=== PATIENT | female | born 1955 | race Caucasian/White ===

== ENCOUNTER 2018-09-21 10:10 | Emergency (ER) | payer SELFPAY ==
[~2018-09-21] VITALS: Ht 167.6 cm; Wt 61.2 kg
[2018-09-21 11:30] VITALS: BP 146/76
[2018-09-21] MEDS ORDERED: HYDROcodone-ACET 5/325MG TAB PO ONE (13:00)
== END 2018-09-21 14:21 | disposition home or self-care (01) ==
LOC: ER 10:10
DX: S52.92XA Unspecified fracture of left forearm, initial encounter for closed fracture (principal); S52.202A Unspecified fracture of shaft of left ulna, initial encounter for closed fracture; I10 Essential (primary) hypertension; W19.XXXA Unspecified fall, initial encounter; Y93.89 Activity, other specified; Y99.8 Other external cause status; Y92.89 Other specified places as the place of occurrence of the external cause

== ENCOUNTER 2019-05-19 23:31 | Inpatient (IN) | payer MEDICAID, OTHER ==
[~2019-05-19] VITALS: Ht 167.6 cm; Wt 75.7 kg
[2019-05-20 00:14] LABS: Basophils # (auto) 0.1 uL; Eosinophils # (auto) 0.4 uL; Eosinophils % (auto) 4.6 % (0.0-7.0); Hematocrit 39.6 % (36.0-46.0); Hemoglobin 12.9 g/dL (12.2-16.2); Lymphocytes # (auto) 1.4 uL; Lymphocytes % (auto) 14.7 % (10.0-50.0); Mean Corpuscular Hemoglobin 29.5 pg (28.0-32.0); Mean Corpuscular Hgb Conc. 32.7 g/dL (32.0-36.0); Mean Corpuscular Volume 90.2 fL (80.0-100.0); Monocytes # (auto) 0.5 uL; Monocytes % (auto) 5.6 % (0.0-12.0); Neutrophils # (auto) 7.2 uL; Neutrophils % (auto) 74.1 % (37.0-80.0); Nucleated Red Blood Cells % 0.1 %; Platelet Count (auto) 371 10^3/uL (140-450); Red Blood Cells 4.39 10^6/uL (4.0-5.20); Red Cell Distribution Width 15.8 % (11.8-14.3); White Blood Cell 9.7 10^3/uL (4.4-10.8)
[2019-05-20] MEDS ORDERED: FUROSEMIDE 40 MG/4 ML VIAL IV ONE ×2 (00:30→01:30)
[2019-05-20 00:31] LABS: Albumin 3.1 g/dL (3.4-5.0); Anion Gap 9 (5-15); Blood Urea Nitrogen 15 mg/dL (7-18); Calcium 8.4 mg/dL (8.5-10.1); Carbon Dioxide 21 mmol/L (21-32); Chloride 102 mmol/L (98-107); Glucose 106 mg/dL (74-106); Magnesium 1.9 mg/dL (1.6-2.6); Potassium 3.9 mmol/L (3.5-5.1); Sodium 132 mmol/L (136-145)
[2019-05-20 00:33] LABS: BUN/Creatinine Ratio 20.8; GFR African American 105 mL/min; GFR Non-African American 87 mL/min
[2019-05-20 00:41] LABS: Alanine Aminotransferase 46 U/L (13-56); Alkaline Phosphatase 140 U/L (45-117); Aspartate Aminotransferase 34 U/L (15-37); Bilirubin, Total 0.3 mg/dL (0.2-1.0); Total Protein 7.1 g/dL (6.4-8.2)
[2019-05-20 00:44] LABS: INR 1.01 (0.9-1.15); Partial Thromboplastin Time 31.4 sec (23.64-32.05)
[2019-05-20] MEDS ORDERED: FUROSEMIDE 20 MG/2 ML VIAL IV ONE (00:45)
[2019-05-20] MEDS ORDERED: LEVOFLOXACIN 750MG 150 ML IV ONE (01:15)
[2019-05-20 01:22] LABS: Urine WBC None Seen /hpf (0 - 5)
[2019-05-20 01:45] LABS: Urine Bacteria NONE SEEN /hpf (None Seen); Urine Blood Negative /uL (Negative); Urine Specific Gravity 1.003 (1.001-1.035)
[2019-05-20] MEDS ORDERED: ONDANSETRON HCL 4 MG/2 ML VIAL IV ONE ×2 (02:30→04:00)
[2019-05-20] MEDS ORDERED: LABETALOL HCL 5 MG/ML 4ML SYRINGE IV ONE ×2 (02:30→04:00)
[2019-05-20] MEDS ORDERED: MORPHINE SULFATE 4 MG/ML SYR/VIAL IV ONE (02:30)
[2019-05-20] MEDS ORDERED: LEVOFLOXACIN 500MG 100 ML IV ONE (03:00)
[2019-05-20] MEDS ORDERED: MORPHINE SULF INJ 2 MG/ML SYRINGE 1ML IV ONE (04:00)
[2019-05-20] MEDS ORDERED: SODIUM CHLORIDE 0.9% 250 ML IV ONE (04:00)
[2019-05-20] MEDS ORDERED: IOHEXOL 350 MG/ML 100ML IJ ONE (05:52)
[2019-05-20] MEDS ORDERED: ONDANSETRON HCL 4 MG/2 ML VIAL IV PRN (06:15)
[2019-05-20] MEDS ORDERED: cloNIDine HCL 0.1 MG TAB PO PRN (06:15)
[2019-05-20] MEDS ORDERED: TEMAZEPAM 15 MG CAP PO PRN (06:15)
[2019-05-20] MEDS ORDERED: MORPHINE SULF INJ 2 MG/ML SYRINGE 1ML IV PRN (07:15)
[2019-05-20] MEDS ORDERED: NITROGLYCERIN 0.4 MG SL TAB SL PRN (07:15)
[2019-05-20 07:37] VITALS: BP 129/72
[2019-05-20 07:39] LABS: Cholesterol 167 mg/dL (< 200); HDL Cholesterol 82 mg/dL (40-59); LDL Cholesterol 72 mg/dL (< 100); Triglycerides 67 mg/dL (< 150)
[2019-05-20] MEDS: ASPirin 81 mg TAB PO SCH (09:22)
[2019-05-20] MEDS: LEVOFLOXACIN 500MG 100 ML IV SCH (09:22)
[2019-05-20] MEDS: FAMOTIDINE 20 MG TAB PO SCH ×2 (09:23→22:11)
[2019-05-20] MEDS ORDERED: amLODIPine BESYLATE 5 MG TAB PO SCH (10:00)
[2019-05-20] MEDS ORDERED: LEVOTHYROXINE SODIUM 100 MCG/5 ML INJ IV ONE (13:30)
--- NOTE | 2019-05-20 14:01 | NUR ---
Respiratory note: PRN MED NEB TX ASSESSMENT. PT AWAKE ALERT AND RESPONSIVE. PT FOUND ON 4 LPM NC. SP02 96%. BREATH SOUNDS ARE DIMINISHED, WHEEZE AND RALES. PT IS IN NO DISTRESS AT THIS TIME. NO TX INDICATED. INFORMED PT IF BECOMES SOB TO HAVE RT PAGED.
--- NOTE | 2019-05-20 14:30 | NUR ---
CAME FROM ER ON [facility], RECEIVED PATIENT ALERT AND ORIENTED X4, NOT IN DISTRESS, DIMINISHED SOUNDS IN BILATERAL LUNG LOBES, RR=20 SAT 93% WITH 3 L NC, DEEP BREATHING AND COUGHING ENCOURAGED, SR R=74 ON TELE MONITOR, DENIED CHEST PAIN AND SOB, ABDOMEN SOFT AND ROUND WITH ACTIVE BS, LAST BM=05/19/19, BARON CATH IN PLACE AND PATENT, DRAINING CLEAR YELLOW URINE, BRUISES ON BILATERAL HANDS NOTED, EDEMA AND SKIN DRYNESS OF BILATERAL LOWER EXTREMITIES NOTED, GENERAL SKIN INTACT WARM TO TOUCH, RADIAL AND PEDAL PULSES PALPABLE, CAP REFILL<3 SECONDS, RESTING ON BED, VS T=97.6 RR=20 SAT=94% P=79 SX=496/82, HEAD OF BED ELEVATED, RAILS UP X2, CALL LIGHT ON REACH, WILL CONTINUE MONITORING.
--- NOTE | 2019-05-20 14:30 | NUR ---
PATIENT UNABLE TO PROVIDE HOME MEDICATION LIST OR REMEMBER THE MEDICATION SHE TAKE AT HOME, WILL BERING HOME MEDICATION LIST REPORTED.
[2019-05-20 14:41] LABS: Free T4 (Free Thyroxine) 0.81 ng/dL (0.89-1.76)
[2019-05-20 14:42] LABS: Free T3 1.83 pg/mL (2.3-4.2)
[2019-05-20 14:50] VITALS: BP 144/83
[2019-05-20] MEDS ORDERED: DIP25C PO (17:04)
[2019-05-20] MEDS ORDERED: LISI10TA6 PO (17:04)
[2019-05-20] MEDS ORDERED: FUROSEMIDE 20 MG/2 ML VIAL IV SCH (18:00)
[2019-05-20] MEDS: FUROSEMIDE 20 MG/2 ML VIAL IV SCH (18:08)
--- NOTE | 2019-05-20 19:50 | NUR ---
REPORT WAS GIVEN TO THE INFORMATION OFFICER RN.
--- NOTE | 2019-05-20 19:55 | NUR ---
Opening Shift Note Assumed care of patient, awake and alert. No S/S of distress/SOB or pain. Instructed on POC and to be NPO after MN. Instructed to call for assist PRN, patient verbalized understanding. Call light within reach, bed alarm on, will continue to monitor for changes Q1hr and PRN.
[2019-05-20 20:00] VITALS: BP 131/74
--- NOTE | 2019-05-20 21:21 | NUR ---
Respiratory note: ASSESSMENT FOR PRN MED NEB TX. PT PRESENTING NO RESPIRATORY DISTRESS AT THIS TIME. HR 80, SPO2 95% ON 6L NC, RR 20, BS DIMINISHED. PT REFUSED MED NEB TX, PT AWARE TO HAVE RT PAGE IF MED NEB TX IS NEEDED, WILL CONTINUE TO MONITOR.
[2019-05-20 22:00] VITALS: BP 131/74
[2019-05-20] MEDS: ATORVASTATIN 20 MG TAB PO SCH (22:11)
[2019-05-20] MEDS: ENALAPRIL MALEATE 2.5 MG TAB PO SCH (22:12)
[2019-05-20] MEDS: METOPROLOL TARTRATE 25 MG TAB PO SCH (22:13)
[2019-05-20] MEDS: ACETAMINOPHEN 325 MG TAB PO PRN (22:21)
[2019-05-20 23:18] LABS: Alcohol, Urine < 3.0 mg/dL (0-5); Amphetamine Screen, Urine NEGATIVE (NEGATIVE); Barbiturate Scree,Urine NEGATIVE (NEGATIVE); Benzodiazephine Screen, Urine NEGATIVE (NEGATIVE); Cannabinoid Screen, Urine NEGATIVE (NEGATIVE); Cocaine Screen, Urine NEGATIVE (NEGATIVE); Opiate Scree,Urine NEGATIVE (NEGATIVE); Phencyclidine Screen, Urine NEGATIVE (NEGATIVE)
[2019-05-21 05:00] VITALS: BP 99/61
[2019-05-21 05:39] LABS: Basophils # (auto) 0.1 uL; Basophils % (auto) 0.6 % (0.0-2.0); Eosinophils # (auto) 0.2 uL; Eosinophils % (auto) 2.8 % (0.0-7.0); Hematocrit 35.3 % (36.0-46.0); Hemoglobin 11.8 g/dL (12.2-16.2); Lymphocytes # (auto) 0.9 uL; Lymphocytes % (auto) 10.5 % (10.0-50.0); Mean Corpuscular Hemoglobin 30.3 pg (28.0-32.0); Mean Corpuscular Hgb Conc. 33.6 g/dL (32.0-36.0); Mean Corpuscular Volume 90.3 fL (80.0-100.0); Monocytes # (auto) 0.6 uL; Monocytes % (auto) 6.9 % (0.0-12.0); Neutrophils # (auto) 7.1 uL; Neutrophils % (auto) 79.2 % (37.0-80.0); Nucleated Red Blood Cells % 0.1 %; Platelet Count (auto) 303 10^3/uL (140-450); Red Blood Cells 3.91 10^6/uL (4.0-5.20); Red Cell Distribution Width 15.8 % (11.8-14.3); White Blood Cell 8.9 10^3/uL (4.4-10.8)
[2019-05-21 05:54] LABS: Albumin 2.5 g/dL (3.4-5.0); BUN/Creatinine Ratio 20.6; Calcium 8.1 mg/dL (8.5-10.1)
[2019-05-21] MEDS: FUROSEMIDE 20 MG/2 ML VIAL IV SCH ×2 (06:00→18:02)
[2019-05-21] MEDS: ALBUTEROL SULF 2.5 MG/0.5ML(0.5%) NEB SOLN NEB PRN ×2 (06:44→13:38)
--- NOTE | 2019-05-21 07:30 | NUR ---
Opening Shift Note Assumed care of patient, awake and alert. No S/S of distress/SOB or pain. Patient NPO for stress test and patient is aware. Instructed on POC and to call for assist PRN, will continue to monitor for changes Q1hr and PRN.
--- NOTE | 2019-05-21 08:35 | NUR ---
Patient to Nuclear med for cardiolite stress test per w/c in a stable condition.
[2019-05-21 09:00] VITALS: BP 132/73
[2019-05-21] MEDS ORDERED: ADENOSINE 66 MG in GIVE UN-DILUTED 0 ML IV ONE (09:00)
[2019-05-21] MEDS: LEVOTHYROXINE SODIUM 100 MCG/5 ML INJ IV SCH (11:06)
[2019-05-21] MEDS: METOPROLOL TARTRATE 25 MG TAB PO SCH ×2 (11:07→22:23)
[2019-05-21] MEDS: ENALAPRIL MALEATE 2.5 MG TAB PO SCH ×2 (11:07→22:22)
[2019-05-21] MEDS: FAMOTIDINE 20 MG TAB PO SCH ×2 (11:08→22:21)
[2019-05-21] MEDS: ASPirin 81 mg TAB PO SCH (11:08)
[2019-05-21] MEDS: LEVOFLOXACIN 500MG 100 ML IV SCH (11:19)
--- NOTE | 2019-05-21 11:30 | NUR ---
PATIENT NOTED TO BE BACK FROM STRESS TEST. PATIENT TOOK DIET AND FLUIDS WELL.
[2019-05-21 13:00] VITALS: BP 125/70
--- NOTE | 2019-05-21 14:42 | NUR ---
PT IN ULTRASOUND FOR A THORACENTESIS BY DR HUTCHINS. VS 100/[id number]%. finished at 1455. 1600 ml of pleural fluid removed and sent to lab. pt tolerated procedure well. post cxr done
--- NOTE | 2019-05-21 15:15 | NUR ---
PATIENT BACK TO HER ROOM PER BED S/P THORACENTESIS. NO BLEEDING OR DRAINAGE NOTED FROM RIGHT UPPER BACK DRESSINGS. WILL CONTINUE TO MONITOR PATIENT.
[2019-05-21 17:00] VITALS: BP 110/82
--- NOTE | 2019-05-21 19:49 | NUR ---
received report from day rn poc reviewed
[2019-05-21] MEDS: ATORVASTATIN 20 MG TAB PO SCH (22:21)
--- NOTE | 2019-05-21 22:46 | NUR ---
resting comfortable with hob up resp even and unlabored, non productive cough call light within reach, bed alarm intact
[2019-05-21 23:31] VITALS: BP 121/73
[2019-05-22] VITALS (7 sets, daily range): BP systolic 70–123; BP diastolic 58–65
--- NOTE | 2019-05-22 02:05 | NUR ---
awoke gave self bedbath, no c/o discomfort, call light within reach
[2019-05-22] MEDS: FUROSEMIDE 20 MG/2 ML VIAL IV SCH ×2 (05:49→17:48)
--- NOTE | 2019-05-22 05:58 | NUR ---
awoke am care given lasix given as ordered, no c/o discomfort
--- NOTE | 2019-05-22 07:02 | NUR ---
report given to am nurse poc reviewed
[2019-05-22 08:14] LABS: Potassium 3.6 mmol/L (3.5-5.1)
[2019-05-22 08:22] LABS: BUN/Creatinine Ratio 26.1; Calcium 8.3 mg/dL (8.5-10.1)
[2019-05-22] MEDS: LEVOFLOXACIN 500MG 100 ML IV SCH (11:27)
[2019-05-22] MEDS: ASPirin 81 mg TAB PO SCH (11:28)
[2019-05-22] MEDS: LEVOTHYROXINE SODIUM 100 MCG/5 ML INJ IV SCH (11:28)
[2019-05-22] MEDS: FAMOTIDINE 20 MG TAB PO SCH ×2 (11:29→21:38)
[2019-05-22] MEDS: METOPROLOL TARTRATE 25 MG TAB PO SCH ×2 (11:29→21:40)
[2019-05-22] MEDS: ENALAPRIL MALEATE 2.5 MG TAB PO SCH ×2 (11:29→21:39)
--- NOTE | 2019-05-22 19:10 | NUR ---
PT ASSESSED, PRN TX NOT INDICATED AT THIS TIME. SAT 93% ON 2L NC, NO SOB OR WHEEZING NOTED
[2019-05-22] MEDS: ATORVASTATIN 20 MG TAB PO SCH (21:41)
[2019-05-23 05:43] VITALS: BP 107/62
[2019-05-23] MEDS: FUROSEMIDE 20 MG/2 ML VIAL IV SCH ×2 (06:06→17:57)
[2019-05-23] MEDS: ACETAMINOPHEN 325 MG TAB PO PRN (07:49)
[2019-05-23 08:45] VITALS: BP 125/61
--- NOTE | 2019-05-23 09:27 | NUR ---
RT NOTE: WENT TO PTS ROOM TO ASSESS FOR PRN BREATHING TX, NO S/S OF SOB. HR 81 RR 16, SPO2 93% ON 2L NC. NO INDICATION FOR TREATMENT AT THIS TIME. WILL CONTINUE TO MONITOR PT.
[2019-05-23] MEDS: ASPirin 81 mg TAB PO SCH (10:45)
[2019-05-23] MEDS: LEVOTHYROXINE SODIUM 100 MCG/5 ML INJ IV SCH (10:45)
[2019-05-23] MEDS: FAMOTIDINE 20 MG TAB PO SCH ×2 (10:45→22:53)
[2019-05-23] MEDS: METOPROLOL TARTRATE 25 MG TAB PO SCH ×2 (10:51→22:00)
[2019-05-23] MEDS: LEVOFLOXACIN 500MG 100 ML IV SCH (10:52)
[2019-05-23] MEDS: ENALAPRIL MALEATE 2.5 MG TAB PO SCH ×2 (10:52→22:00)
[2019-05-23 13:00] VITALS: BP 115/71
[2019-05-23] MEDS ORDERED: cefTRIAXone 1GM/50ML D5W 50 ML IV ONE (13:15)
[2019-05-23] MEDS ORDERED: guaiFENesin-DM 100/10mg/5ml SYR PO ONE (13:15)
[2019-05-23] MEDS ORDERED: AZITHROMYCIN 500MG/ 250ML 250 ML IV ONE (14:15)
[2019-05-23 17:00] VITALS: BP 91/58
[2019-05-23 20:00] VITALS: BP 98/58
[2019-05-23] MEDS: guaiFENesin-DM 100/10mg/5ml SYR PO PRN (20:11)
[2019-05-23 22:00] VITALS: BP 98/51
[2019-05-23] MEDS: ATORVASTATIN 20 MG TAB PO SCH (22:53)
[2019-05-24 05:30] VITALS: BP 135/54
[2019-05-24] MEDS: guaiFENesin-DM 100/10mg/5ml SYR PO PRN ×4 (05:35→18:41)
[2019-05-24] MEDS: FUROSEMIDE 20 MG/2 ML VIAL IV SCH ×2 (05:36→18:41)
--- NOTE | 2019-05-24 06:51 | NUR ---
BP meds held at 2200 due to low BP 98/51 and 92/50. Asymptomatic. BP 135/54 this am. Up to bedside commode and seems to tolerate bedside commode. Cough syrup given X2 during noc with relief.
--- NOTE | 2019-05-24 08:00 | NUR ---
OPENING SHIFT NOTE: PATIENT AWAKE IN BED. A/OX4 RESPIRATIONS EVEN AND UNLABORED, SHALLOW, PATIENT REPORTS HAVING THE URGE TO COUGH. COMMODE AT BEDSIDE, BARON HUNG BELOW BLADDER FREE OF KINKS. CALL LIGHT AND ROOM PHONE PLACED WITHIN REACH. FALL PRECAUTIONS IN PLACE, WILL CONTINUE TO MONITOR.
--- NOTE | 2019-05-24 08:27 | NUR ---
Respiratory note: WENT TO PTS ROOM TO ASSESS FOR PRN BREATHING TX, NO S/S OF SOB. HR 66 RR 16, SPO2 97% ON 2L NC. NO INDICATION FOR TREATMENT AT THIS TIME. WILL CONTINUE TO MONITOR PT.
--- NOTE | 2019-05-24 08:33 | NUR ---
WOUND CARE CONSULT PLACED: PATIENT REPORTING "ITCHING EVERYWHERE FOR A WHILE NOW." THIS RN NOTED SCALY LESIONS TO UPPER ARMS AND BILATERAL LOWER LEGS.
[2019-05-24 08:49] LABS: BUN/Creatinine Ratio 27.2; Calcium 8.3 mg/dL (8.5-10.1); Magnesium 2.3 mg/dL (1.6-2.6); Potassium 4.4 mmol/L (3.5-5.1)
[2019-05-24 09:00] VITALS: BP 131/74
[2019-05-24] MEDS: cefTRIAXone 1GM/50ML D5W 50 ML IV SCH (09:32)
[2019-05-24] MEDS: ENALAPRIL MALEATE 2.5 MG TAB PO SCH ×2 (09:33→22:38)
[2019-05-24] MEDS: LEVOTHYROXINE SODIUM 100 MCG/5 ML INJ IV SCH (09:33)
[2019-05-24] MEDS: DOXYCYCLINE 100 MG TAB/CAP PO SCH ×2 (09:33→22:40)
[2019-05-24] MEDS: ASPirin 81 mg TAB PO SCH (09:33)
[2019-05-24] MEDS: FAMOTIDINE 20 MG TAB PO SCH ×2 (09:33→22:38)
[2019-05-24] MEDS: METOPROLOL TARTRATE 25 MG TAB PO SCH ×2 (09:34→22:39)
[2019-05-24] MEDS ORDERED: AZITHROMYCIN 500MG/ 250ML 250 ML IV SCH (10:00)
--- NOTE | 2019-05-24 11:00 | NUR ---
WOUND CARE NOTE: IN TO SEE PATIENT AT THIS TIME PER WOUND CARE CONSULT REQUEST. PATIENT NOTED TO HAVE RASH TO BLE, RIGHT UPPER SHOULDER, BACK. WOUND CONSULT ORDERED. PATIENT ADMITTED TO [facility] WITH DIAGNOSIS OF ACUTE ON CHRONIC DIASTOLIC HEART FAILURE. SHE HAS CURRENT ANALIA SCORE OF 18. PATIENT CAN SELF TURN/REPOSITION SELF. HOSPITALIST, DR. LERNER AT BEDSIDE. SHE IS ORDERING HYDROCORTISONE CREAM FOR PATIENT'S RASH TO RIGHT SHOULDER AND BACK. 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 SKIN/WOUND CARE PLAN PLACED FOR LOW ANALIA SCORE BELOW 19. NO OTHER SKIN INTEGRITY ISSUES SEEN. RECOMMEND: ELEVATION OF BLE FOR EDEMA CONTROL, SKIN/WOUND CARE PLAN FOR ANALIA SCORE OF 18, HYDROCORTISONE CREAM PER MD ORDER TO SKIN RASH AREAS. NO FURTHER WOUND CARE NEEDED AT THIS TIME.
[2019-05-24] MEDS ORDERED: HYDROCORTONE 1% TOPICAL CREAM 30 GM TUBE TOP ONE (11:15)
--- NOTE | 2019-05-24 11:15 | NUR ---
BARON CATHETER REMOVED.100 ML OF CLEAR YELLOW URINE NOTED IN BARON BAG 10CC OF WATER DRAWN FROM BALLOON. CATHETER INTACT. EDUCATED TO CALL THIS RN ON FIRST VOID.
[2019-05-24 13:00] VITALS: BP 126/64
--- NOTE | 2019-05-24 13:05 | NUR ---
PATIENT VOIDED IN BEDSIDE COMMODE. APPROX 100ML PALE URINE. PATIENT ALSO HAD SMALL SOFT BROWN BM.
--- NOTE | 2019-05-24 14:00 | NUR ---
NUTRITION ASSESSMENT NOTES Please refer to link notes of nutrition screen form filed under the intervention section of the plan of care for further details. Est. Needs: 1800 kcal to 2150 kcal (25-30 kcal/kgBW), 72 gms to 86 gms pro (1.0-1.2 gms/kgBW). Will continue to monitor pertinent labs and reassess nutrient need prn Thank you. Addendum: 05/24/19 at [address] Amended: Links added.
[2019-05-24] MEDS: HYDROCORTONE 1% TOPICAL CREAM 30 GM TUBE TOP SCH (14:58)
[2019-05-24 16:52] VITALS: BP 128/83
--- NOTE | 2019-05-24 19:25 | NUR ---
CARE ENDORSED TO PAULIE JOSEPH
--- NOTE | 2019-05-24 19:45 | NUR ---
Respiratory note: ASSESSED PT FOR PRN MED NEB TX. PT IS CURRENTLY ON 1 L/M NC: HR 70, RR 18, SPO2 98%. PT SHOWS NO S/S OF SOB OR RESPIRATORY DISTRESS. MED NEB TX NOT INDICATED AT THIS TIME. PT AWARE TO HAVE RT PAGED IF SOB OCCURS. WILL CONTINUE TO MONITOR.
[2019-05-24 22:01] VITALS: BP 112/66
[2019-05-25] MEDS: ATORVASTATIN 20 MG TAB PO SCH ×2 (00:48→21:19)
[2019-05-25] MEDS: HYDROCORTONE 1% TOPICAL CREAM 30 GM TUBE TOP SCH ×3 (00:49→21:18)
[2019-05-25 05:00] VITALS: BP 116/62
[2019-05-25] MEDS: FUROSEMIDE 20 MG/2 ML VIAL IV SCH ×2 (05:40→18:16)
[2019-05-25] MEDS: guaiFENesin-DM 100/10mg/5ml SYR PO PRN ×4 (05:45→21:17)
--- NOTE | 2019-05-25 06:09 | NUR ---
PRN [place] TX NOT INDICATED AT THIS TIME.PT ON RA, 93% O2 SATS, HR 66 BPM, RR18 BPM, BS ARE DIMINISHED AND CLEAR TO AUSCULTATION. NO SOB OR ANY OTHER RESPIRATORY DISTRESS NOTED. WILL CONTINUE TOP MONITOR PT.
[2019-05-25 06:28] LABS: Potassium 4.3 mmol/L (3.5-5.1)
[2019-05-25 06:33] LABS: BUN/Creatinine Ratio 24.4; Calcium 8.3 mg/dL (8.5-10.1)
[2019-05-25 07:19] VITALS: BP 116/66
[2019-05-25 09:00] VITALS: BP 133/86
[2019-05-25] MEDS: cefTRIAXone 1GM/50ML D5W 50 ML IV SCH (09:13)
[2019-05-25] MEDS: ASPirin 81 mg TAB PO SCH (09:13)
[2019-05-25] MEDS: LEVOTHYROXINE SODIUM 100 MCG/5 ML INJ IV SCH (09:14)
[2019-05-25] MEDS: DOXYCYCLINE 100 MG TAB/CAP PO SCH ×2 (09:14→21:18)
[2019-05-25] MEDS: FAMOTIDINE 20 MG TAB PO SCH ×2 (09:15→21:19)
[2019-05-25] MEDS: METOPROLOL TARTRATE 25 MG TAB PO SCH ×2 (09:16→21:19)
[2019-05-25] MEDS: ENALAPRIL MALEATE 2.5 MG TAB PO SCH ×2 (09:16→21:19)
[2019-05-25 13:00] VITALS: BP_SYST 114; BP_SYST 120; BP_DIAS 58; BP_DIAS 60
--- NOTE | 2019-05-25 16:46 | NUR ---
assessment Patient is a 63 year old female who is alert and oriented. Patients cognitive abilities are intact. Prior to admission patient lived home with her and functioned independently. Patient informed me she is able to care for her own ADLs. Per patient she will return home to her prior living arrangements post discharge and family will transport her home. Patient informed me she has no need for DME. Patients PCP is Dr David. Patient has no safety issues regarding returning home on discharge. Patient will be assessed for home 02 needs prior to discharge. Patient may also benefit from PT eval for any other home health or DME needs. I informed patient she has a right to speak to a social sciences lecturer regarding all care. I informed patient she has a right to participate in any and all discharge planning. Patient does not have a POA and advanced directive. I have offered patient information on POA and advanced directives. I informed the patient the advantages and benefits of having an Advanced Directive. Patient verbalized understanding and agreed to discharge plan. Addendum: 05/25/19 at 1649 by Yazmin EPPS Amended: Links added.
[2019-05-25 17:00] VITALS: BP 130/61
--- NOTE | 2019-05-25 20:21 | NUR ---
Respiratory note: ASSESSED PT FOR PRN MED NEB TX. PT IS CURRENTLY ON 2 L/M NC: HR 65, RR 18, SPO2 98%. PT SHOWS NO S/S OF SOB OR RESPIRATORY DISTRESS. MED NEB TX IN NOT INDICATED AT THIS TIME. PT AWARE TO HAVE RT PAGED IS SOB OCCURS. WILL CONTINUE TO MONITOR.
[2019-05-25 22:00] VITALS: BP 108/68
--- NOTE | 2019-05-25 22:00 | NUR ---
IV INSERTED ON THE LEFT FOREARM, GAUGE 20. BENIGN AND PATENT.
[2019-05-26] MEDS: ACETAMINOPHEN 325 MG TAB PO PRN (00:13)
[2019-05-26 04:56] LABS: Basophils # (auto) 0.1 uL; Eosinophils # (auto) 0.7 uL; Hematocrit 36.5 % (36.0-46.0); Hemoglobin 12.1 g/dL (12.2-16.2); Lymphocytes # (auto) 1.3 uL; Lymphocytes % (auto) 15.7 % (10.0-50.0); Mean Corpuscular Hemoglobin 29.5 pg (28.0-32.0); Mean Corpuscular Hgb Conc. 33.1 g/dL (32.0-36.0); Mean Corpuscular Volume 89.1 fL (80.0-100.0); Monocytes # (auto) 0.7 uL; Monocytes % (auto) 8.5 % (0.0-12.0); Neutrophils # (auto) 5.3 uL; Neutrophils % (auto) 65.8 % (37.0-80.0); Nucleated Red Blood Cells % 0.1 %; Platelet Count (auto) 337 10^3/uL (140-450); Red Cell Distribution Width 15.2 % (11.8-14.3); White Blood Cell 8.1 10^3/uL (4.4-10.8)
[2019-05-26 05:00] VITALS: BP 116/61
[2019-05-26 05:16] LABS: Calcium 8.3 mg/dL (8.5-10.1); INR 1.02 (0.9-1.15); Partial Thromboplastin Time 29.2 sec (23.64-32.05)
[2019-05-26 05:18] LABS: BUN/Creatinine Ratio 23.8
[2019-05-26] MEDS: LEVOTHYROXINE SODIUM 100 MCG TAB PO SCH (05:59)
[2019-05-26] MEDS: FUROSEMIDE 20 MG/2 ML VIAL IV SCH (05:59)
--- NOTE | 2019-05-26 08:12 | NUR ---
Patient taken down to laborer brush clearing transported via bed with ACLS guidelines and portable oxygen. No distress noted. Patient care endorsed to Ria pearson. Will cont care on arrival back to unit. data center technician Bibi notified patient is in laborer brush clearing.
[2019-05-26] MEDS ORDERED: LIDOCAINE 2%HCL (LOCAL ANESTH.) INJ 20ML MDV ONE (08:21)
[2019-05-26] MEDS ORDERED: HEPARIN IN NS 1000Units/500mL 0 ML ONE (08:21)
[2019-05-26] MEDS ORDERED: IOHEXOL 350 MG/ML 100ML IJ ONE (08:21)
[2019-05-26] MEDS ORDERED: ANGIOMAX 250 MG VIAL IV ONE (08:39)
[2019-05-26] MEDS ORDERED: fentaNYL CITRATE 100 MCG/2 ML VL ONE (08:39)
[2019-05-26] MEDS ORDERED: SODIUM CHL 0.9% 0 ML ONE (08:40)
[2019-05-26] MEDS ORDERED: MIDAZOLAM HCL 1MG/1ML-2 ML VIAL ONE (08:40)
[2019-05-26 09:00] VITALS: BP 116/66
[2019-05-26] MEDS: HYDROCORTONE 1% TOPICAL CREAM 30 GM TUBE TOP SCH ×2 (10:00→21:49)
[2019-05-26] MEDS ORDERED: ENALAPRIL MALEATE 10 MG TAB PO ONE (11:15)
[2019-05-26] MEDS: cefTRIAXone 1GM/50ML D5W 50 ML IV SCH (11:27)
[2019-05-26] MEDS: METOPROLOL TARTRATE 25 MG TAB PO SCH ×2 (11:28→21:48)
[2019-05-26] MEDS: FAMOTIDINE 20 MG TAB PO SCH ×2 (11:28→21:47)
[2019-05-26] MEDS: ASPirin 81 mg TAB PO SCH (11:28)
[2019-05-26] MEDS: DOXYCYCLINE 100 MG TAB/CAP PO SCH ×2 (11:28→21:48)
[2019-05-26 13:00] VITALS: BP 138/69
--- NOTE | 2019-05-26 13:10 | NUR ---
Patient ambulating with assist. Dressing to right groin c/d/i. No s/s of hematoma or bleeding noted.
[2019-05-26] MEDS: guaiFENesin-DM 100/10mg/5ml SYR PO PRN ×3 (13:40→21:47)
[2019-05-26] MEDS ORDERED: LEV100T PO (16:26)
[2019-05-26] MEDS ORDERED: POTA10TA51 PO (16:26)
[2019-05-26] MEDS ORDERED: ASPI81CH43 PO (16:26)
[2019-05-26] MEDS ORDERED: HCTZ25T PO (16:26)
[2019-05-26] MEDS ORDERED: ENAL10TA2 PO (16:26)
[2019-05-26] MEDS ORDERED: ATOR20TA50 PO (16:26)
[2019-05-26] MEDS ORDERED: MET25T PO (16:26)
[2019-05-26 17:00] VITALS: BP 118/69
--- NOTE | 2019-05-26 19:15 | NUR ---
Patient care endorsed endorsed care to Jasmine rn. Patient sitting up in bed in no acute distress or sob noted. Call light within reach
--- NOTE | 2019-05-26 19:25 | NUR ---
Opening Shift Note Assumed care of patient, awake and alert and oriented x4, currently on 2L via NC, No S/S of distress/SOB or pain reported at this time. Right groin dressing cdi, pedal pulses and sensation intact, Instructed on POC and to call for assist PRN, call light within reach, bed positioned low, 2 side rails up, bed alarm activated, will continue to monitor for changes Q1hr and PRN.
--- NOTE | 2019-05-26 19:36 | NUR ---
Respiratory note: ASSESSMENT FOR PRN MED NEB TX. PT PRESENTING NO DISTRESS AT THIS TIME. HR 76, SPO2 96% ON 2L NC, RR 18, BS DIMINISHED. MED NEB TX NOT INDICATED AT THIS TIME. PT AWARE TO HAVE RT PAGED IF MED NEB TX IS NEEDED. WILL CONTINUE TO MONITOR.
[2019-05-26 20:00] VITALS: BP 117/70
[2019-05-26] MEDS: ENALAPRIL MALEATE 10 MG TAB PO SCH (21:48)
[2019-05-26] MEDS: ATORVASTATIN 20 MG TAB PO SCH (21:49)
[2019-05-26 22:00] VITALS: BP 117/70
[2019-05-27] MEDS: ACETAMINOPHEN 325 MG TAB PO PRN (03:26)
[2019-05-27 05:00] VITALS: BP 119/69
[2019-05-27] MEDS: LEVOTHYROXINE SODIUM 100 MCG TAB PO SCH (06:08)
--- NOTE | 2019-05-27 06:31 | NUR ---
IV removal Right FA IV DC'd with clean sterile technique, catheter fully intact. Pressure dressing applied to site. Patient tolerated well.
[2019-05-27 06:42] LABS: BUN/Creatinine Ratio 22.2; Calcium 8.4 mg/dL (8.5-10.1); Potassium 4.7 mmol/L (3.5-5.1)
--- NOTE | 2019-05-27 07:40 | NUR ---
Opening Note Received report from second shift supervisor RN. Patient is awake, alert and oriented x4. No signs or symptoms of distress noted at this time. Patient denies pain at this time. Patient is on 2L NC, respirations even and unlabored. Reviewed plan of care with patient, patient verbalized understanding. Bed in low and locked position, call light within reach. Will continue to monitor Q1 hour and PRN.
[2019-05-27 09:00] VITALS: BP 126/67
[2019-05-27] MEDS ORDERED: FUROSEMIDE 40 MG/4 ML VIAL IV ONE (09:30)
[2019-05-27] MEDS ORDERED: HCTZ 25 MG TAB PO SCH (10:00)
[2019-05-27] MEDS: DOXYCYCLINE 100 MG TAB/CAP PO SCH (10:18)
[2019-05-27] MEDS: FAMOTIDINE 20 MG TAB PO SCH (10:19)
[2019-05-27] MEDS: METOPROLOL TARTRATE 25 MG TAB PO SCH (10:19)
[2019-05-27] MEDS: ENALAPRIL MALEATE 10 MG TAB PO SCH (10:19)
[2019-05-27] MEDS: ASPirin 81 mg TAB PO SCH (10:20)
[2019-05-27] MEDS: HYDROCORTONE 1% TOPICAL CREAM 30 GM TUBE TOP SCH (10:21)
[2019-05-27] MEDS ORDERED: HCTZ25T PO (10:32)
[2019-05-27] MEDS ORDERED: LEVO150T10 PO (10:32)
--- NOTE | 2019-05-27 10:36 | NUR ---
PT. ASSESSED FOR PRN. MN. TX., NO RESP. DISTRESS OR SOB NOTED. PT. STATES SHE IS NOT IN NEED OF TX. AT THIS TIME, AND STATES SHE IS GOING HOME TODAY. HR=70,RR=18,SP02=96% ON RA., BS. ARE CLEAR AND DIMINISHED AT THE BASES. NO TX. GIVEN, PT. IS AWARE SHE MAY CALL IF NEEDED.
[2019-05-27 12:45] VITALS: BP 126/66
[2019-05-27 13:00] VITALS: BP 125/61
--- NOTE | 2019-05-27 14:30 | NUR ---
Discharge Discharge instructions given as ordered. Encourage to follow up with PMD as instructed. All questions and concerns addressed. Patient verbalized understanding. Medication reconciliation form completed and copy given to patient. IV removed with catheter intact, pressure dressing applied, Telemetry unit returned to ICU. Patient ambulated with all personal belongings, accompanied by staff and family member. No distress noted at time of departure.
== END 2019-05-27 14:30 | disposition home or self-care (01) | DRG 192 ==
LOC: ER 23:33 → TELE 23:34 → TELE-WESTW 05-20 14:08
PROVIDERS: ADMIT Nurse Practitioner; ATTEND Internal Medicine
PROC: 0W993ZZ Drainage of Right Pleural Cavity, Percutaneous Approach (ICD-10-PCS; 2019-05-21)
PROC: 4A023N8 Measurement of Cardiac Sampling and Pressure, Bilateral, Percutaneous Approach (ICD-10-PCS; principal; 2019-05-26)
PROC: B2111ZZ Fluoroscopy of Multiple Coronary Arteries using Low Osmolar Contrast (ICD-10-PCS; 2019-05-26)
PROC: B2151ZZ Fluoroscopy of Left Heart using Low Osmolar Contrast (ICD-10-PCS; 2019-05-26)
DX: I13.0 Hypertensive heart and chronic kidney disease with heart failure and stage 1 through stage 4 chronic kidney disease, or unspecified chronic kidney disease (principal); J96.00 Acute respiratory failure, unspecified whether with hypoxia or hypercapnia; J18.9 Pneumonia, unspecified organism; J91.8 Pleural effusion in other conditions classified elsewhere; I27.20 Pulmonary hypertension, unspecified; I43 Cardiomyopathy in diseases classified elsewhere; I50.33 Acute on chronic diastolic (congestive) heart failure; J44.0 Chronic obstructive pulmonary disease with (acute) lower respiratory infection; I16.0 Hypertensive urgency; N18.9 Chronic kidney disease, unspecified; E03.9 Hypothyroidism, unspecified; M48.50XA Collapsed vertebra, not elsewhere classified, site unspecified, initial encounter for fracture; E78.5 Hyperlipidemia, unspecified; Z91.19 Patient's noncompliance with other medical treatment and regimen
CPT/HCPCS: 10022; 32555; 36415; 36600; 70450; 71045; 71046; 71275; 76604; 76942; 78452; 80048; 80053; 80061; 80307; 81001; 82040; 82805; 82962; 83605; 83615; 83735; 83880; 83986; 84132; 84439; 84443; 84481; 84484; 85025; 85379; 85610; 85730; 87040; 87205; 87804; 89051; 93005; 93017; 93306; 93460; 93970; 94640; 96361; 96365; 96366; 96375; 97116; 97530; 99152; 99153; 99291; C1751; G0378; J0153; J0696; J1956; J2250; J2405; J3490